=== PATIENT | female | born 1940 | race Caucasian/White ===

== ENCOUNTER 2017-07-10 09:47 | Emergency (ER) | payer MEDICARE, OTHER ==
[2016-07-01 14:07] VITALS: BMI 26.2
[~2017-07-10 09:47] MED LIST: AMOXICILLIN875 MG PO; ASPIRIN81 MG PO; BETAPACE 80 MG80 MG PO; BRILINTA90 MG PO; COZAAR50 MG PO; LOPRESSOR25 MG PO; PRAVACHOL40 MG PO
[2017-07-10 10:31] LABS: BASOPHILS 0.2 % (0-2); EOSINOPHILS 1.2 % (0-7); HEMATOCRIT 43.3 % (36.0-48.0); HEMOGLOBIN 14.6 g/dL (12-16); IMMATURE GRANULOCYTES 0.2 % (0-5); LYMPHOCYTES 17.7 % (15-50); MCH 31.2 pg (26.0-34.0); MCHC 33.7 g/dL (31.0-37.0); MCV 92.5 fL (80.0-100.0); MEAN PLATELET VOLUME 10.6 fL (7.4-10.4); MONOCYTES 6.5 % (2-11); NEUTROPHILS 74.2 % (40-80); PLATELET COUNT 218 10x3/uL (130-400); RBC 4.68 10x6/uL (4.00-5.40); RDW 12.5 % (11.5-14.5); WBC 10.6 10x3/uL (4.8-10.8)
[2017-07-10 10:49] LABS: ALBUMIN 4.1 g/dL (3.4-5.0); BILIRUBIN - TOTAL 0.82 mg/dL (0.2-1.3); CALCIUM 9.8 mg/dL (8.5-10.1); CARBON DIOXIDE 25.6 mmol/L (21.0-32.0); CREATININE - SERUM 0.8 mg/dL (0.6-1.3); POTASSIUM - SERUM 3.6 mmol/L (3.5-5.1); PROTEIN - SERUM 8.1 g/dL (6.4-8.2)
[2017-07-10 12:42] LABS: APPEARANCE CLEAR (CLEAR); BILIRUBIN NEGATIVE (NEGATIVE); COLOR YELLOW (YELLOW); EPITHELIAL CELLS 0-5 /hpf (0-5); GLUCOSE NEGATIVE (NEGATIVE); KETONE MODERATE mg/dL (NEGATIVE); NITRITE NEGATIVE (NEGATIVE); PROTEIN NEGATIVE (NEGATIVE); UROBILINOGEN NORMAL (NORMAL); WHITE CELLS - URINE >50 /hpf (0-5)
[2017-07-10 12:43] LABS: AMORPHOUS SEDIMENT <1+ /lpf (NONE SEEN); BACTERIA MODERATE /hpf (NONE SEEN); MUCUS >1+ /lpf (NONE SEEN)
[2017-07-10] MEDS ORDERED: COZAAR50 MG PO (22:38)
[2017-07-10] MEDS ORDERED: MECLIZINE HCL12.5 MG PO (22:42)
== END 2017-07-10 14:35 | disposition home or self-care (01) ==
LOC: D.ER 09:47
PROVIDERS: Family Medicine
DX: N39.0 Urinary tract infection, site not specified (principal); J01.90 Acute sinusitis, unspecified

== ENCOUNTER 2017-07-10 15:27 | Inpatient (IN) | payer MEDICARE, OTHER ==
[~2017-07-10] VITALS: Ht 157.5 cm; Wt 63.2 kg
--- NOTE | 2017-07-10 21:36 | NUR ---
SPOKE WITH LEILA IN THE ER IN REGARDS TO PT. LEILA INFORMED ME THE PT HAS NOT URINATED SINCE THIS AM AND DR. SERRANO STATED THAT DR. RIVERA NEEDED TO BE CONTACTED TO ORDER A DIET FOR THE PT. IVY NOLEN IN REGARDS TO PATIENT'S DIET, FLUIDS, AND ORDERS FOR IN AND OUT CATH IF NEEDED.
--- NOTE | 2017-07-10 21:36 | NUR ---
LEILA IN THE ER NOTIFIED ME THAT DR. RIVERA HAS ALREADY BEEN CONTACTED IN REGARDS TO THE PT'S MRI RESULTS
--- NOTE | 2017-07-10 21:40 | NUR ---
CRISTAL RESPONDED TO PAGE. CRISTAL STATED SHE IS NOT TRAIN ATTENDANT FOR DR. RIVERA. CRISTAL ALSO ORDERED IV FLUIDS FOR THE PT, STARTED THE PT ON ROCEPHIN, AND ORDERED A ARAGON IF THE PT'S BLADDER SCAN WAS > 400. WILL PAGE DR. RIVERA IN REGARDS TO THE PT'S DIET.
--- NOTE | 2017-07-10 21:45 | NUR ---
PATIENT REC'D FROM ER WITH SON AT BEDSIDE. NO VISIBLE SIGNS OF DISTRESS. PT IS A&O, HOWEVER, IS SLOW TO RESPOND WHEN ASKED QUESTIONS. BED IN LOWEST POSITION, CALL LIGHT WITHIN REACH, AND BED ALARM WITHIN REACH.
--- NOTE | 2017-07-10 22:15 | NUR ---
DR. RIVERA ORDERED A CLEAR LIQUID DIET AND STATED THAT SPEECH THERAPY WILL DO A SWALLOW TEST IN THE AM
[2017-07-10] MEDS ORDERED: COZAAR50 MG PO (22:38)
[2017-07-10] MEDS ORDERED: MECLIZINE HCL12.5 MG PO (22:42)
--- NOTE | 2017-07-10 23:29 | NUR ---
BLADDER SCAN REVEALED 735ML
[2017-07-10 23:57] VITALS: BP 155/75
[2017-07-11 01:40] VITALS: BP 155/75; Ht 157.5 cm; Wt 63.2 kg
[2017-07-11 04:00] VITALS: BP 161/82
[2017-07-11 06:37] LABS: BASOPHILS 0 % (0-2); EOSINOPHILS 0 % (0-7); HEMATOCRIT 41.8 % (36.0-48.0); HEMOGLOBIN 13.9 g/dL (12-16); IMMATURE GRANULOCYTES 0.3 % (0-5); LYMPHOCYTES 12.6 % (15-50); MCH 30.8 pg (26.0-34.0); MCHC 33.3 g/dL (31.0-37.0); MCV 92.7 fL (80.0-100.0); MONOCYTES 0.7 % (2-11); NEUTROPHILS 86.4 % (40-80); PLATELET COUNT 212 10x3/uL (130-400); RBC 4.51 10x6/uL (4.00-5.40); RDW 12.5 % (11.5-14.5); WBC 6.9 10x3/uL (4.8-10.8)
[2017-07-11 07:01] LABS: ALBUMIN 3.6 g/dL (3.4-5.0); ALKALINE PHOSPHATASE 44 U/L (46-116); ALT (SGPT) 18 U/L (10-68); CALC OSMOLALITY 275 mosm/kg (275-300); CALCIUM 9.4 mg/dL (8.5-10.1); CARBON DIOXIDE 21.9 mmol/L (21.0-32.0); CHLORIDE - SERUM 102 mmol/L (98-107); CREATININE - SERUM 0.6 mg/dL (0.6-1.3); GLUCOSE 140 mg/dL (74-106); POTASSIUM - SERUM 3.8 mmol/L (3.5-5.1); PROTEIN - SERUM 7.1 g/dL (6.4-8.2); SODIUM 136 mmol/L (136-145); UREA NITROGEN 17 mg/dL (7-18); eGFR NON AFRICAN AMERICAN > 90 mL/min (90-120)
[2017-07-11 08:15] VITALS: BP 151/83
--- NOTE | 2017-07-11 09:00 | NUR ---
ASSESSMENT PER FLOW SHEET. PT WITHOUT DISTRESS. PT COMPLAINS OF DULL HEADACHE THAT IS CONSTANT,4/10 SCALE. PT HAS SHAKING OF ARMS AND HANDS. SHE ALSO HAS BRUISE TO LEFT ELBOW WITH SMALL SCRAPE. PT STATES SHE HAD GOT DIZZY AND FELL AT HOME. BED ALARM IS ON AND FUCTIONING. FAL PREVENTION TEACHING WITH FAMILY. CALL LIGHT IN REACH.
[2017-07-11 11:57] VITALS: BP 156/80
[2017-07-11 16:51] VITALS: BP 137/78
--- NOTE | 2017-07-11 18:50 | NUR ---
REMAINS WITHOUT CHANGE FRON INITIAL ASSESSMENT. MEDS FOR PAIN ORDERED, BRINGING HEADACHE DOWN TO 2/10 SCALE PER PT. CONNT PLAN OF CARE
--- NOTE | 2017-07-11 20:52 | NUR ---
PATIENT IS AWAKE, ALERT AND ORIENTED X'S 4. PATIENT STATED SHE IS TIRED AND WANTS TO GO TO SLEEP. ASSESSED IV, GOOD BLOOD RETURN. DILUTED DECADRON IN 5ML OF SALINE FLUSH. PATIENT DENIES NEEDS. REFUSED NON-SKID SOCKS. SHE HAS HOUSE SHOES IN THE ROOM WITH TRACTION ON THE BOTTOM, SHE STATED SHE WILL WEAR THOSE WHEN SHE NEEDS TO GET UP. BED ALARM ON. SPOKE WITH PATIENT ABOUT FALL PRECAUTIONS, PATIENT STATED SHE WILL NOT GET UP WITHOUT ASSISTANCE. BED IN LOWEST POSITION, CALL LIGHT IN REACH.
[2017-07-11 21:30] VITALS: BP 135/69
[2017-07-12 00:26] VITALS: BP 129/50
--- NOTE | 2017-07-12 04:04 | NUR ---
SCDS ON BILATERAL LEGS
[2017-07-12 04:44] VITALS: BP 142/61
[2017-07-12 05:12] LABS: BASOPHILS 0 % (0-2); EOSINOPHILS 0 % (0-7); HEMATOCRIT 38.8 % (36.0-48.0); IMMATURE GRANULOCYTES 0.3 % (0-5); LYMPHOCYTES 8.6 % (15-50); MCHC 33.5 g/dL (31.0-37.0); MCV 92.6 fL (80.0-100.0); MONOCYTES 2.3 % (2-11); NEUTROPHILS 88.8 % (40-80); PLATELET COUNT 219 10x3/uL (130-400); RBC 4.19 10x6/uL (4.00-5.40); RDW 12.7 % (11.5-14.5)
--- NOTE | 2017-07-12 05:15 | NUR ---
ARAGON CARE COMPLETED USING ARAGON CARE WIPES.
[2017-07-12 05:17] LABS: WBC 15.6 10x3/uL (4.8-10.8)
[2017-07-12 05:33] LABS: ALBUMIN 3.2 g/dL (3.4-5.0); ALKALINE PHOSPHATASE 42 U/L (46-116); ALT (SGPT) 19 U/L (10-68); BILIRUBIN - TOTAL 0.34 mg/dL (0.2-1.3); CALC OSMOLALITY 276 mosm/kg (275-300); CALCIUM 9.2 mg/dL (8.5-10.1); CARBON DIOXIDE 23.6 mmol/L (21.0-32.0); CHLORIDE - SERUM 104 mmol/L (98-107); CREATININE - SERUM 0.7 mg/dL (0.6-1.3); GLUCOSE 138 mg/dL (74-106); POTASSIUM - SERUM 4.1 mmol/L (3.5-5.1); PROTEIN - SERUM 6.4 g/dL (6.4-8.2); SODIUM 137 mmol/L (136-145); UREA NITROGEN 16 mg/dL (7-18); eGFR NON AFRICAN AMERICAN 87 mL/min (90-120)
--- NOTE | 2017-07-12 07:20 | NUR ---
PT IS RECEIVED THIS AM LYING IN BED. SHE OFFERS NO COMPLAINTS. GOT PT SOME COFFEE AND FRESH WATER. SHE IS NOT HAVING ANY PAIN AT THIS TIME. GEN- AWAKE AND ALERT. LUNGS- CLEAR. HEART. RRR ABD- SOFT,NT,BS +. EXT- MINIMAL EDEMA NOTED. IV PATENT L HAND. ARAGON INTACT. SCD'S INTACT. BED IS LOW, SIDE RAILS UP X 2 AND CALL LIGHT IN REACH.
[2017-07-12 08:06] VITALS: BP 148/64
--- NOTE | 2017-07-12 09:51 | NUR ---
GAVE PT HER 0900 MEDS. HER SON IS AT BEDSIDE. HE ASKED THAT DR RIVERA CALL HIS DAD. HE HAD A STROKE AND JUST GOT OUT OF THE HOSPITAL A COUPLE OF WEEKS AGO AND HE HAS SOME QUESTIONS REGARDING HIS . I PUT A NOT ON THE FRONT OF HER CHART. SHE ASKED WHAT THE SCD'S WERE FOR. EXPLAINED REASON FOR THESE. NO OTHER NEEDS AT THIS TIME.
--- NOTE | 2017-07-12 10:45 | NUR ---
PT IS UP WALKING IN HALLWAY WITH PHYSICAL THERAPY. TOLERATING WELL.
--- NOTE | 2017-07-12 11:07 | NUR ---
PT IS BACK TO BED. SHE OFFERS NO PROBLEMS. HER SON IS AT BEDSIDE.
[2017-07-12 12:27] VITALS: BP 140/70
--- NOTE | 2017-07-12 14:30 | NUR ---
PT IS DOING WELL. SHE OFFERS NO COMPLAINTS. SON AT BEDSIDE. THEY ARE WATCHING TV.
[2017-07-12 15:53] VITALS: BP 132/53
--- NOTE | 2017-07-12 16:30 | NUR ---
PT IS RESTING IN BED. SHE OFFERS NO COMPLAINTS. HER SON IS AT BEDSIDE.
--- NOTE | 2017-07-12 17:26 | NUR ---
PT IS RESTING. SON AT BEDSIDE. SHE OFFERS NO COMPLAINTS. BED IS LOW, SIDE RAILS UP X 2 AND CALL LIGHT IN REACH.
[2017-07-12 20:00] VITALS: BP 130/64
--- NOTE | 2017-07-12 21:25 | NUR ---
REC'D LYING IN BED. ALERT AND ORIENTED X4. DENIED PAIN AT THIS TIME. DENIED NEEDS AT THIS TIME. NO DISTRESS NOTED. INSTRUCTED TO CALL IF NEEDED ANYTHING, VERBALIZED UNDERSTANDING. WILL ADMIN PM MEDS PRESCRIBED. BED LOW, LOCKED, CALL LIGHT IN REACH. WILL CONT TO MONITOR.
[2017-07-13] VITALS: BP 135/64
--- NOTE | 2017-07-13 00:59 | NUR ---
PT RESTING WITH EYES CLOSED AT THIS TIME. NO DISTRESS NOTED. EQUAL RISE AND FALL OF CHEST. CALL LIHGT IN REACH.
[2017-07-13 04:00] VITALS: BP 121/65
--- NOTE | 2017-07-13 07:10 | NUR ---
REPORT RECEIVED, ASSUMED CARE OF PT. RESTING, EYES SHUT, EASILY AROUSED, NO NEEDS VOICED AT THIS TIME. L HAND IV INFUSING FLUIDS ORDERED. ARAGON CATHETER IN PLACE, SECURED TO LEG WITH STAT LOCK. BED IN LOWEST POSITION, SIDE RAILS UP X 2, CALL LIGHT WITHIN REACH.
[2017-07-13 08:16] VITALS: BP 158/62
--- NOTE | 2017-07-13 09:54 | NUR ---
Patient Name: SOTO AVILA Admission Status: ER Accout number: [id number] Admission Date: 07-10-2017 : 1940 Admission Diagnosis:MALIGNANT NEOPLASM OF BRAIN, UNSPECIFIED Attending: DAPHNE AVENDAÑO Current LOS: 3 Anticipated DC Date: 07-17-2017 Planned Disposition: Home Primary Insurance: MEDICARE A & B Discharge Planning Comments: CM MET WITH PATIENT REGARDING D/C NEEDS AND PLANS. PATIENT STATED SHE LIVES WITH HER SPOUSE AND THERE HOME HAS 5 STEPS W/RAILS TO ENTER HOME AND NO STAIRS INSIDE. PATIENT STATED SHE IS INDEPENDENT WITH HER CARE AND HAS A WALKER, AND SHOWER BENCH AT HOME. PATIENTS PCP IS DR. LOZANO AND PHARMACY IS [facility]. PATIENT DOES NOT WANT HOME HEALTH AT THIS TIME. CM WILL CONTINUE TO FOLLOW PATIENT WITH D/C NEEDS AND PLANS. PCP DR. [facility]- [phone] SOPHIA (SON) [phone] Rough And Trueing Machine Operator: Carol Griffith Is the patient Alert and Oriented? Yes 0 * How many steps to enter\exit or inside your home? 5 W/RAILS 0 * PCP DR. LOZANO 0 * Pharmacy [facility] 0 * Preadmission Environment Home with Family 0 * ADLs Independent 0 * Equipment Shower Chair Walker 0 * List name and contact numbers for known caregivers / representatives who currently or will assist patient after discharge: SOPHIA (SON) [phone] 0 * Community resources currently utilized None 0 * Additional services required to return to the preadmission environment? Yes 0 * Can the patient safely return to the preadmission environment? Yes 0 * Has this patient been hospitalized within the prior 30 days at any hospital? No 0 Grand Total: 0
[2017-07-13 12:33] VITALS: BP 157/82
[2017-07-13 13:31] LABS: BASOPHILS 0 % (0-2); EOSINOPHILS 0 % (0-7); HEMATOCRIT 39.6 % (36.0-48.0); HEMOGLOBIN 13.3 g/dL (12-16); IMMATURE GRANULOCYTES 0.5 % (0-5); LYMPHOCYTES 7.2 % (15-50); MCH 31.1 pg (26.0-34.0); MCHC 33.6 g/dL (31.0-37.0); MCV 92.5 fL (80.0-100.0); MEAN PLATELET VOLUME 10.8 fL (7.4-10.4); MONOCYTES 8.5 % (2-11); NEUTROPHILS 83.8 % (40-80); PLATELET COUNT 230 10x3/uL (130-400); RBC 4.28 10x6/uL (4.00-5.40); RDW 12.8 % (11.5-14.5); WBC 15.1 10x3/uL (4.8-10.8)
[2017-07-13 14:00] LABS: ALBUMIN 3.1 g/dL (3.4-5.0); ANION GAP 14.6 mmol/L (8-16); BILIRUBIN - TOTAL 0.36 mg/dL (0.2-1.3); CALCIUM 9.1 mg/dL (8.5-10.1); CREATININE - SERUM 0.8 mg/dL (0.6-1.3); POTASSIUM - SERUM 3.6 mmol/L (3.5-5.1); PROTEIN - SERUM 6.4 g/dL (6.4-8.2)
[2017-07-13 15:35] VITALS: BP 145/70
--- NOTE | 2017-07-13 16:20 | NUR ---
ARAGON CATHETER D/C'D ORDERED.
[2017-07-13] MEDS ORDERED: FLORAJEN3 CAPS460 MG PO (17:10)
[2017-07-13] MEDS ORDERED: OMNICEF300 MG PO (17:11)
[2017-07-13] MEDS ORDERED: DECADRON4 MG PO (17:15)
--- NOTE | 2017-07-13 18:11 | NUR ---
OT NOTE: PT COMPLETED BED MOB WITH SPV. PT COMPLETED DYNAMIC SITTING BALANCE WITH SPV. PT COMPLETED BUE EXS FOR INCREASED STRENGTH. THANK YOU, YAZMIN ALEXANDER/Alo
--- NOTE | 2017-07-13 19:48 | NUR ---
ALERT AND ORIENTED. PLEASANT AND TALKATIVE. DISCHARGED FROM ROOM 2231 TO HOME. TAKEN OUT IN W/C BY STAFF WITH FAMILY AT SIDE TO PERSONAL VECHICLE. ALL BELONGING SENT WITH PT..
== END 2017-07-13 19:35 | disposition home or self-care (01) | DRG 54 ==
LOC: D.ER 15:27 → D.MS 18:07
PROVIDERS: ADMIT Family Medicine
DX: C71.9 Malignant neoplasm of brain, unspecified (principal); G93.6 Cerebral edema; N39.0 Urinary tract infection, site not specified; I25.10 Atherosclerotic heart disease of native coronary artery without angina pectoris; E78.5 Hyperlipidemia, unspecified; R55 Syncope and collapse

== ENCOUNTER 2017-07-18 05:19 | Inpatient (IN) | payer MEDICARE, OTHER ==
[2017-07-17 14:16] LABS: BASOPHILS 0 % (0-2); EOSINOPHILS 0.2 % (0-7); HEMATOCRIT 42.5 % (36.0-48.0); HEMOGLOBIN 14.5 g/dL (12-16); IMMATURE GRANULOCYTES 0.8 % (0-5); LYMPHOCYTES 10.9 % (15-50); MCH 31.1 pg (26.0-34.0); MCHC 34.1 g/dL (31.0-37.0); MCV 91.2 fL (80.0-100.0); MEAN PLATELET VOLUME 10.7 fL (7.4-10.4); MONOCYTES 4.7 % (2-11); NEUTROPHILS 83.4 % (40-80); PLATELET COUNT 237 10x3/uL (130-400); RBC 4.66 10x6/uL (4.00-5.40); RDW 12.8 % (11.5-14.5); WBC 11.2 10x3/uL (4.8-10.8)
[2017-07-17 14:22] LABS: APTT 21.8 SECONDS (22.8-39.4); INR 0.94 (0.85-1.17); PROTIME 12.4 SECONDS (11.6-15.0)
[2017-07-17 14:30] LABS: CALC OSMOLALITY 280 mosm/kg (275-300); CALCIUM 8.7 mg/dL (8.5-10.1); CARBON DIOXIDE 24.1 mmol/L (21.0-32.0); CHLORIDE - SERUM 103 mmol/L (98-107); CREATININE - SERUM 0.6 mg/dL (0.6-1.3); GLUCOSE 131 mg/dL (74-106); POTASSIUM - SERUM 4.2 mmol/L (3.5-5.1); SODIUM 138 mmol/L (136-145); UREA NITROGEN 22 mg/dL (7-18); eGFR NON AFRICAN AMERICAN > 90 mL/min (90-120)
[2017-07-18] VITALS (15 sets, daily range): BP systolic 113–163; BP diastolic 60–92; Ht 157.5 cm; Wt 65.5 kg
[~2017-07-18] VITALS: Ht 157.5 cm; Wt 65.5 kg
[~2017-07-18 05:19] MED LIST changes: +DECADRON4 MG PO; +FLORAJEN3 CAPS460 MG PO; +MECLIZINE HCL12.5 MG PO; +OMNICEF300 MG PO
--- NOTE | 2017-07-18 10:54 | NUR ---
1055: RIGHT KNEE SORE UNCHANGED.
--- NOTE | 2017-07-18 11:54 | NUR ---
CONSULTED DR VIVAR REGARDING ELEVATED BP. GIVEN VERBAL ORDERS TO GIVE HYDRALAZINE 10MG IV X1 IN PACU WITH SBP GREATER THAN 140.
--- NOTE | 2017-07-18 12:20 | NUR ---
REC'D VIA BED FROM RECOVERY, AWAKE AND ORIENTED, HEAD WITH STOCKINET DRESSING IN PLACE, DRESSING CDI, O2 VIA NC, SAT 98%, RIGHT IJDL SL, RIGHT RADIAL DOROTHY IN PLACE, ZEROED STABLE, ARAGON TO GRAVITY WITH CLEAR YELLOW DRAINAGE TO BAG, ASSESSMENT COMPLETE PER FLOWSHEET, ACCLAMATED TO ROOM AND CALL LIGHT, SON CALLED TO BEDSIDE, STATUS UPDATED, VOICES NO NEEDS AT THIS TIME
--- NOTE | 2017-07-18 13:45 | NUR ---
C/O PAIN IN HEAD, NORCO 5325 [address] PER MAR FLOWSHEET
--- NOTE | 2017-07-18 15:00 | NUR ---
RESTING WITH NO SIGN OF DISTRESS VSS, DENIES PAIN, CALL LIGHT IN REACH, REPOSITIONED UP AND TO BACK WITH HEELS FLOATED, NO OTHER NEEDS AT THIS TIME
--- NOTE | 2017-07-18 16:45 | NUR ---
CL LIQUID DINNER TRAY TO BEDSIDE, ASSIST WITH SET UP, INDEPENDENT WITH EATING
--- NOTE | 2017-07-18 19:08 | NUR ---
PC FROM DR RIVERA, STATUS UPDATED, NO NEW ORDERS AT THIS TIME
--- NOTE | 2017-07-18 19:30 | NUR ---
REPORT RECIEVED. SHIFT ASSESSMENT COMPLETE, PT IS ALERT AND ORIENTED, ON 2L NC, DRSG TO HEAD INCISION IS CDI, S1S2, CM-NSR, PATENT RIGHT IJ....SEE IV FLOW SHEET...ALL PPP, VSS, CALL LIGHT IN REACH
--- NOTE | 2017-07-18 20:30 | NUR ---
PT C/O OF HEADACHE, ORDERED PAIN MED GIVEN
--- NOTE | 2017-07-18 21:27 | NUR ---
PT RESTING COMFORTABLY AT THIS TIME, WILL CON'T TO MONITOR
--- NOTE | 2017-07-18 23:08 | NUR ---
PT PAIN IMPROVED AT THIS TIME, NO OTHER NEEDS NOTED, WILL CON'T TO MONITOR
[2017-07-19] VITALS (12 sets, daily range): BP systolic 94–181; BP diastolic 62–100
--- NOTE | 2017-07-19 01:30 | NUR ---
PT C/O OF HEADACHE, ORDERED PAIN MED GIVEN
--- NOTE | 2017-07-19 03:00 | NUR ---
PT RESTING AT THIS TIME, WILL CON'T TO MONITOR
--- NOTE | 2017-07-19 04:58 | NUR ---
PT AWAKE AT THIS TIME, DENIES ANY WANTS OR NEEDS, WILL CON'T TO MONITOR
--- NOTE | 2017-07-19 11:00 | NUR ---
BATH AND LINEN CHANGE COMPLETED, DOROTHY DC'D RIGHT IJTL, SL, DRESSING CHANGE TO LEFT OCCIPTAL LOBE, CLEANED WITH WOUND CLEANSER, BORDERED GAUZE DRESSING APPLIED, ASSESSMENT COMPLETE PER FLOWSHEET, VSS, DENIES PAIN, CALLLIGHT IN REACH, VOICES NO NEEDS AT THIS TIME
--- NOTE | 2017-07-19 11:28 | NUR ---
* Is the patient Alert and Oriented? Yes 0 * How many steps to enter\exit or inside your home? 3-4 0 * PCP Dr. Osorio 0 * Pharmacy [place] 0 * Preadmission Environment Home with Family 0 * ADLs Independent 0 * Equipment Rolling Walker Shower Chair 0 * List name and contact numbers for known caregivers / representatives who currently or will assist patient after discharge: Diallo Toussaint [phone] 0 * Additional services required to return to the preadmission environment? No 0 * Can the patient safely return to the preadmission environment? Yes 0 * Has this patient been hospitalized within the prior 30 days at any hospital? Yes Patient Name: SOTO TOUSSAINT Admission Status: Elective Accout number: [id number] Admission Date: 07-18-2017 : 1940 Admission Diagnosis: Attending: VANDA RIVERA Current LOS: 1 Anticipated DC Date: 07-23-2017 Planned Disposition: Home Primary Insurance: MEDICARE A & B Discharge Planning Comments: CM met with patient & son, Coy, to assess dc plans/needs. Patient reports she lives at home with her , Hans, and her adult daughter. Coy states he lives next door. Patient reports she is independent with all ADL's. She has a walker and shower bench at home. At dc, she plans to return home with her family. She is agreeable to home health if necessary. CM will follow & assist as needed. Bias Cutter: Linnea Barrett
--- NOTE | 2017-07-19 12:00 | NUR ---
SON SOPHIA AT BEDSIDE, STATUS UPDATED VOICES NO NEEDS AT THIS TIME
--- NOTE | 2017-07-19 12:27 | OP ---
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 PROCEDURE: Suboccipital craniectomy for resection of cerebellopontine angle tumor on left, microscopic illumination and CUSA aspirator. DESCRIPTION AND TECHNIQUE: After induction of general endotracheal anesthesia, the patient was placed in Gage head pin and was rolled prone on chest and hip rolls. The occipital and suboccipital scalp were prepped and draped in usual sterile fashion. A longitudinal scalp incision was carried out just above the nuchal line just above the asterion. Dorys clips applied for hemostasis. The asterion was identified after subperiosteal dissection with Bovie cautery. Next, several marquez holes were created with the asterion in the upper lateral corner. Bone was removed with match head and Midas Connor drill until the transverse sinus and sigmoid sinus were identified. The mastoid air cells were entered. These were waxed with copious amounts of bone wax. The dura was opened in a cruciate manner with bipolar cautery and #11 blade. The cerebellum was gently retracted inferiorly. There was an obvious tumor attached to the dura, it was attached to the transverse sinus and sigmoid sinuses. 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 The perimeter was cauterized with bipolar cautery and dissected free under microscopic illumination with microdissectors from the transverse sinus, sigmoid sinus, and dura as well as the cerebellum. Following this, there appeared to be a gross total resection of the tumor. Meticulous hemostasis was maintained throughout the wound. The wound was irrigated with copious amounts of lukewarm saline irrigant solution. Surgicel was placed in the bed of the wound. The dura was reapproximated with interrupted 4-0 Nurolon suture. The dura was repaired with Duragen patch. Titanium mesh was used to reconstitute the cranial defect as well as methyl methacrylate bone cement. The galea was reapproximated with interrupted 2-0 Vicryl suture. The subdermal layer was closed with 3-0 Vicryl suture. The skin was closed with becka. A sterile dressing was applied to the wound. The patient was awakened in good condition and taken to recovery. All counts were reported as correct. Estimated blood loss was minimal. TRANSINT:[id number] Voice Confirmation ID: [id number] DOCUMENT ID: [id number] VANDA RIVERA MD at 1227 CC: [id number] DICTATION DATE: 07/18/17 1112 MEDICAL MANAGER: 07/18/17 1207 ADM IN [id number] [place] [address]
--- NOTE | 2017-07-19 13:00 | NUR ---
REPORT CALLED TO KATE SHANNON ON MED SURG...
--- NOTE | 2017-07-19 13:57 | NUR ---
PT RECIEVED PER WC FROM ICU. ASSISTED TO BED. ARAGON PATENT DRAINING YELLOW URINE. RIGHT IJ NOTED-DRESSING CHANGED PER PROTOCOL. BED ALARM ON AND FALL PRECAUTIONS IN PLACE. CALL LIGHT IN REACH
--- NOTE | 2017-07-19 15:14 | NUR ---
Rehab Prescreening Consult recieved and the chart has been reviewed. She is an excellent rehab candidate. She is POD#1 Crainiotomy. She has a pending PT/OT eval that was ordered today. Rehab will follow her progress with therapy and plan for admission when she is medically stable and can participate in the 3 hrs of therapy daily 5 days a week. Tessa Madsen RN Clinical Liaison, Rehab
--- NOTE | 2017-07-19 19:40 | NUR ---
RECIEVED SHIFT REPORT. PT IS LYING IN BED. ALERT AND ORIENTED AND ABLE TO VERBALIZE NEEDS. IV IS PATENT AND SALINE LOC. ARAGON IS DRAINING URINE BY GRAVITY. PT IS ABLE TO ASSIST IN TURNING SELF IN BED FOR COMFORT AND SKIN CARE. PT STATES PAIN IS 4/10. NO NEEDS ARE VERBALIZED AT THIS TIME. WILL CONTINUE TO MONITOR. SIDE RAILS ARE UP X 2. BED IS IN LOWEST POSITION. BED ALARM IS ON FOR SAFETY. CALL LIGHT IS WITHIN REACH.
--- NOTE | 2017-07-19 20:51 | NUR ---
SHIFT ASSESSMENT COMPLETED. NIGHT MEDS GIVEN WITH NO PROBLEMS. PT C/O PAIN 12/19. ADMINISTERED PRESCRIBED PRN NORCO PER ORDER. DENIES FURTHER NEEDS. WILL MONITOR. SIDE RAILS X 2. BED LOW. BED ALARM ON. CALL LIGHT IN REACH.
[2017-07-20] VITALS: BP 139/71
[2017-07-20 04:00] VITALS: BP 195/90
--- NOTE | 2017-07-20 08:00 | NUR ---
ASSESSMENT COMPLETE. R BRENDA PATENT. ARAGON PATENT DRAINING YELLOW URINE. BED ALARM IN USE. DRESSING TO L HEAD C/D/I. DENIES ANY NEEDS AT THIS TIME.
[2017-07-20 09:03] VITALS: BP 175/85
--- NOTE | 2017-07-20 11:30 | NUR ---
COMPLAINING OF INDIGESTION. MYLANTA GIVEN. SITTING UP IN CHAIR. SON AT BEDSIDE.
[2017-07-20 12:32] VITALS: BP 146/80
--- NOTE | 2017-07-20 15:00 | NUR ---
NO CHANGES NOTED AT PRESENT.
--- NOTE | 2017-07-20 15:44 | NUR ---
REHAB PRESCREENING Rehab referral received and chart reviewed. Both ST and OT have signed off on patient. PT is recommending home with discharge. Without the requirement of 2 disciplines, this patient does not meet admission criteria for [facility]. Thank you for this referral! Larisa Olson, [facility] [place] Technician
[2017-07-20 16:48] VITALS: BP 154/86
--- NOTE | 2017-07-20 18:05 | NUR ---
SITTING UP IN CHAIR. DENIES ANY NEEDS AT PRESENT.
[2017-07-20 20:00] VITALS: BP 94/61
--- NOTE | 2017-07-20 20:27 | NUR ---
OT NOTE: PT COMPLETED DYNAMIC STANDING WITH CGA. PT COMPLETED DYNAMIC SITTING BALANCE WITH SPV. PT BUE FM SKILLS FOR INCREASED I WITH ADLS. THANK YOU, YAZMIN ALEXANDER/Alo
--- NOTE | 2017-07-20 23:00 | NUR ---
REMOVED REMOVED RIGHT IJ CVL CATHETER INTACT WHILE PT SAT IN CHAIR. APPLIED DRESSED WITH 2X2 GAUZE AND COVERED WITH TEGADERM. PT TOLERATED WELL. NO OTHER NEEDS. WILL CONTINUE TO MONITOR.
--- NOTE | 2017-07-20 23:37 | NUR ---
PT FOUND SITTING IN FLOOR BESIDE SINK. STATED SHE FELT WEAK WHILE BRUSHING HER TEETH AND EASED HERSELF DOWN TO THE FLOOR HOLDING ONTO THE COUNTER AND WALL. PT STATES NO PAIN OR INJURIES. PT STATES "I DID NOT FALL." VITAL SIGNS STABE. NEURO CHECKS WNL. HELPED PT UP AND INTO BED. INSTRUCTED PT TO CALL FOR ASSISTANCE BEFORE GETTING UP. TURNED BED ALARM ON.
[2017-07-21 00:43] VITALS: BP 133/66
[2017-07-21 04:00] VITALS: BP 125/74
--- NOTE | 2017-07-21 07:30 | NUR ---
AWAKE AND ALERT. ORIENTED X3. NO C/O AT THIS TIME. LUNGS ARE CLEAR BILATERALLY, NO COUGH NOTED. SKIN IS INTACT WITHOUT REDNESS EXCEPT INCISION TO LEFT SIDE BACK OF HEAD WHICH IS CLEAN AND DRY WITH CLIPS INTACT. ARAGON D/C THIS AM WITH TIP INTACT WITHOUT DIFFICULTY. WILL MONITOR.
[2017-07-21 09:30] VITALS: BP 156/72
[2017-07-21 14:13] VITALS: BP 133/62; BP 138/76
--- NOTE | 2017-07-21 14:59 | NUR ---
PATIENT DISCHARGING HOME TODAY, PATIENT'S SON WILL DRIVE HER HOME. PATIENT AND DR RIVERA DO NOT WANT HOME HEALTH. PATIENT DENIES ANY OTHER NEEDS FOR DISCHARGE. CM WILL CONTINUE TO FOLLOW AND ASSIST IF NEEDED FOR ANY OTHER DISCHARGE PLANNING NEEDS
[2017-07-21] MEDS ORDERED: HYDROCODONE-APA1 TAB PO (15:03)
[2017-07-21] MEDS ORDERED: DECADRON4 MG PO (15:03)
--- NOTE | 2017-07-21 15:30 | NUR ---
DISCHARGED TO HOME AMBULATORY WITH FAMILY. UP TO BR WITH ONE PERSON ASSIST. VOIDED CLEAR YELLOW URINE WITHOUT DIFFICULTY. DISCHARGE INSTRUCTIONS GIVEN BOTH VERBALLY AND WRITTEN. ALL QUESTIONS ANSWERED. PATIENT AND FAMILY VERBALIZED UNDERSTANDING OF SAME. NEEDED PRESCRIPTIONS GIVEN TO PATIENT. ALL BELONGINGS LEFT WITH PATIENT.
== END 2017-07-21 15:40 | disposition home or self-care (01) | DRG 25 ==
LOC: D.ICU 05:19 → D.SDCHOLD 05:19 → D.MS 05:19 → D.SDCHOLD 07:30 → D.ICU 10:56 → D.MS 07-19 13:47
PROVIDERS: Anesthesiology; ADMIT Neurological Surgery
PROC: 00BC0ZZ Excision of Cerebellum, Open Approach (ICD-10-PCS; principal; 2017-07-18 07:30)
DX: D49.6 Neoplasm of unspecified behavior of brain (principal); G93.6 Cerebral edema; I10 Essential (primary) hypertension; I25.10 Atherosclerotic heart disease of native coronary artery without angina pectoris; I48.0 Paroxysmal atrial fibrillation; E11.9 Type 2 diabetes mellitus without complications; E78.5 Hyperlipidemia, unspecified; R42 Dizziness and giddiness

== ENCOUNTER → 2017-08-18 07:28 | Outpatient (CLI) | payer MEDICARE, OTHER ==
[2017-07-18 16:15] VITALS: BMI 26.0
[~2017-08-18 07:28] MED LIST changes: +ATROVENT 0.02%2.5 ML UPD; +ELIQUIS5 MG PO; +FUROSEMIDE20 MG PO; +HYDROCODONE-APA1 TAB PO; +MUCINEX DM ER1 EAC1 PO; +PROTONIX40 MG PO; +TESSALON PERLE100 MG PO; +XOPENEX 0.0.63 MG/3 UPD
== END | disposition home or self-care (01) ==
LOC: D.MRI 07:28
DX: D49.6 Neoplasm of unspecified behavior of brain (principal)

== ENCOUNTER 2017-09-12 13:55 | Inpatient (IN) | payer MEDICARE, OTHER ==
[~2017-09-12] VITALS: Ht 157.5 cm; Wt 569.0 kg
--- NOTE | ~2017-09-12 | DS ---
PATIENT:SOTO AVILA :44 MEDICAL RECORD: [id number] DISCHARGE SUMMARY ADMISSION DATE: 09/12/17 DISCHARGE DATE: 09/20/17 ADMISSION DIAGNOSIS: Left cerebellar tumor. DISCHARGE DIAGNOSES: Left cerebellar tumor status post suboccipital craniectomy for tumor resection. 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 She tolerated the procedure well, was observed in ICU overnight and then was discharged home on postoperative day 2. Her diet on discharge was a soft diet. DISCHARGE MEDICATIONS: Same as admission medications with addition of Decadron 2 mg p.o. b.i.d. and Marlton 10, 1-2 every 3 hours p.r.n. for pain. TRANSINT:[id number] Voice Confirmation ID: [id number] DOCUMENT ID: [id number] VANDA RIVERA MD at 1543 CC: [id number] DICTATION DATE: 10/18/17 1143 ORCHID SUPERINTENDENT: 10/18/17 2339 DIS IN 09/20/17 [id number] [place] [address]
[~2017-09-12 13:55] MED LIST changes: -ATROVENT 0.02%2.5 ML UPD; -ELIQUIS5 MG PO; -FUROSEMIDE20 MG PO; -MUCINEX DM ER1 EAC1 PO; -PROTONIX40 MG PO; -TESSALON PERLE100 MG PO; -XOPENEX 0.0.63 MG/3 UPD
[2017-09-12 15:22] LABS: HEMATOCRIT 41.9 % (36.0-48.0); HEMOGLOBIN 14.6 g/dL (12-16); MCH 32.6 pg (26.0-34.0); MCHC 34.8 g/dL (31.0-37.0); MCV 93.5 fL (80.0-100.0); PLATELET COUNT 138 10x3/uL (130-400); RBC 4.48 10x6/uL (4.00-5.40); RDW 15.9 % (11.5-14.5); WBC 23.9 10x3/uL (4.8-10.8)
[2017-09-12 15:32] LABS: ALBUMIN 3.1 g/dL (3.4-5.0); ANION GAP 20.1 mmol/L (8-16); BILIRUBIN - TOTAL 1.5 mg/dL (0.2-1.3); CALCIUM 8.7 mg/dL (8.5-10.1); CARBON DIOXIDE 21.3 mmol/L (21.0-32.0); POTASSIUM - SERUM 4.4 mmol/L (3.5-5.1); PROTEIN - SERUM 6.6 g/dL (6.4-8.2)
[2017-09-12 15:54] LABS: ANISOCYTOSIS OCC; LYMPHOCYTES 26 % (15-50); MONOCYTES 2 % (2-11); NEUTROPHILS 56 % (40-80); PLATELET ESTIMATE NORMAL
[2017-09-12 16:41] LABS: CREATINE KINASE 61 UL (21-215); PRO BNP 1200 pg/mL (0-125)
[2017-09-13 03:35] VITALS: BP 132/79; BMI 24.9
[2017-09-13 04:00] VITALS: BP 129/81
[2017-09-13 07:52] VITALS: BP 106/58
[2017-09-13] MEDS ORDERED: FUROSEMIDE20 MG PO (10:21)
[2017-09-13 11:33] VITALS: BP 99/64
[2017-09-13 12:31] VITALS: BMI 24.8
[2017-09-13 13:49] LABS: APPEARANCE CLEAR (CLEAR); BILIRUBIN NEGATIVE (NEGATIVE); COLOR YELLOW (YELLOW); GLUCOSE NEGATIVE (NEGATIVE); KETONE NEGATIVE (NEGATIVE); NITRITE POSITIVE (NEGATIVE); PROTEIN NEGATIVE (NEGATIVE); UROBILINOGEN NORMAL (NORMAL)
[2017-09-13 13:51] LABS: BACTERIA MODERATE /hpf (NONE SEEN); EPITHELIAL CELLS OCC /hpf (0-5); RED CELLS - URINE RARE /hpf (0-5); WHITE CELLS - URINE 0-5 /hpf (0-5)
[2017-09-13 14:23] LABS: HEMATOCRIT 37.2 % (36.0-48.0); HEMOGLOBIN 13.3 g/dL (12-16); MCH 31.9 pg (26.0-34.0); MCHC 35.8 g/dL (31.0-37.0); MCV 89.2 fL (80.0-100.0); MEAN PLATELET VOLUME 10.6 fL (7.4-10.4); PLATELET COUNT 110 10x3/uL (130-400); RBC 4.17 10x6/uL (4.00-5.40); RDW 15.7 % (11.5-14.5)
[2017-09-13 14:46] LABS: ALBUMIN 2.5 g/dL (3.4-5.0); ANION GAP 13.9 mmol/L (8-16); BILIRUBIN - TOTAL 1.1 mg/dL (0.2-1.3); CALCIUM 8.7 mg/dL (8.5-10.1); CARBON DIOXIDE 24.4 mmol/L (21.0-32.0); CREATININE - SERUM 0.8 mg/dL (0.6-1.3); PROTEIN - SERUM 5.5 g/dL (6.4-8.2)
[2017-09-13 14:47] LABS: POTASSIUM - SERUM 3.3 mmol/L (3.5-5.1)
[2017-09-13 15:11] LABS: EOSINOPHILS 3 % (0-7); LYMPHOCYTES 26 % (15-50); MONOCYTES 2 % (2-11); NEUTROPHILS 69 % (40-80); PLATELET ESTIMATE NORMAL
[2017-09-13 15:36] VITALS: BP 95/58
[2017-09-13 17:43] VITALS: Ht 157.5 cm; Wt 569.0 kg
[2017-09-13 19:00] VITALS: BP 107/58
[2017-09-14 04:00] VITALS: BP 115/69
[2017-09-14 05:53] LABS: BASOPHILS 0.2 % (0-2); EOSINOPHILS 0.2 % (0-7); HEMATOCRIT 38.1 % (36.0-48.0); HEMOGLOBIN 13.4 g/dL (12-16); IMMATURE GRANULOCYTES 3.5 % (0-5); LYMPHOCYTES 22.5 % (15-50); MCH 31.5 pg (26.0-34.0); MCHC 35.2 g/dL (31.0-37.0); MCV 89.6 fL (80.0-100.0); MEAN PLATELET VOLUME 10.9 fL (7.4-10.4); NEUTROPHILS 67.6 % (40-80); PLATELET COUNT 110 10x3/uL (130-400); RBC 4.25 10x6/uL (4.00-5.40); RDW 15.6 % (11.5-14.5); WBC 12.5 10x3/uL (4.8-10.8)
[2017-09-14 06:12] LABS: CALCIUM 8.6 mg/dL (8.5-10.1); CARBON DIOXIDE 26.3 mmol/L (21.0-32.0); CHLORIDE - SERUM 101 mmol/L (98-107); PHOSPHOROUS 2.8 mg/dL (2.5-4.9); SODIUM 138 mmol/L (136-145); UREA NITROGEN 24 mg/dL (7-18)
[2017-09-14 06:29] LABS: CALC OSMOLALITY 278 mosm/kg (275-300); CREATININE - SERUM 0.5 mg/dL (0.6-1.3); GLUCOSE 85 mg/dL (74-106); MAGNESIUM - SERUM 1.9 mg/dL (1.8-2.4); POTASSIUM - SERUM 2.9 mmol/L (3.5-5.1); eGFR NON AFRICAN AMERICAN > 90 mL/min (90-120)
[2017-09-14 07:57] VITALS: BP 136/72
[2017-09-14 11:18] VITALS: BP 130/77
[2017-09-14 15:38] VITALS: BP 99/71
[2017-09-14 21:43] VITALS: BP 103/73
[2017-09-15 06:45] VITALS: BP 148/79
[2017-09-15 07:22] LABS: FOLATE (FOLIC ACID) - SERUM 9.2 ng/mL (>3.0)
[2017-09-15 07:58] LABS: BASOPHILS 0.1 % (0-2); EOSINOPHILS 0.2 % (0-7); HEMATOCRIT 39.4 % (36.0-48.0); HEMOGLOBIN 13.7 g/dL (12-16); IMMATURE GRANULOCYTES 1.9 % (0-5); LYMPHOCYTES 18.6 % (15-50); MCH 31.7 pg (26.0-34.0); MCHC 34.8 g/dL (31.0-37.0); MCV 91.2 fL (80.0-100.0); MEAN PLATELET VOLUME 10.9 fL (7.4-10.4); MONOCYTES 5.2 % (2-11); PLATELET COUNT 104 10x3/uL (130-400); RBC 4.32 10x6/uL (4.00-5.40); RDW 15.8 % (11.5-14.5)
[2017-09-15 08:10] LABS: ALBUMIN 2.8 g/dL (3.4-5.0); ALKALINE PHOSPHATASE 86 U/L (46-116); ALT (SGPT) 47 U/L (10-68); CALCIUM 9.1 mg/dL (8.5-10.1); CARBON DIOXIDE 26.4 mmol/L (21.0-32.0); CHLORIDE - SERUM 102 mmol/L (98-107); CREATININE - SERUM 0.6 mg/dL (0.6-1.3); GLUCOSE 99 mg/dL (74-106); PROTEIN - SERUM 6.1 g/dL (6.4-8.2); SODIUM 138 mmol/L (136-145); eGFR NON AFRICAN AMERICAN > 90 mL/min (90-120)
[2017-09-15 08:15] LABS: CALC OSMOLALITY 282 mosm/kg (275-300); POTASSIUM - SERUM 3.7 mmol/L (3.5-5.1); UREA NITROGEN 33 mg/dL (7-18)
[2017-09-15 08:35] VITALS: BP 120/88
[2017-09-15 11:40] VITALS: BP 126/73
[2017-09-15 15:34] VITALS: BP 132/70
[2017-09-15 23:00] VITALS: BP 104/81
[2017-09-16 06:23] VITALS: BP 118/79
[2017-09-16 06:29] LABS: BASOPHILS 0.1 % (0-2); EOSINOPHILS 0.7 % (0-7); HEMATOCRIT 35.7 % (36.0-48.0); HEMOGLOBIN 12.4 g/dL (12-16); IMMATURE GRANULOCYTES 2.3 % (0-5); LYMPHOCYTES 21.1 % (15-50); MCH 31.2 pg (26.0-34.0); MCHC 34.7 g/dL (31.0-37.0); MCV 89.9 fL (80.0-100.0); MEAN PLATELET VOLUME 10.9 fL (7.4-10.4); MONOCYTES 5.9 % (2-11); NEUTROPHILS 69.9 % (40-80); PLATELET COUNT 99 10x3/uL (130-400); RBC 3.97 10x6/uL (4.00-5.40); RDW 15.9 % (11.5-14.5); WBC 8.3 10x3/uL (4.8-10.8)
[2017-09-16 06:39] LABS: CALC OSMOLALITY 283 mosm/kg (275-300); CALCIUM 8.6 mg/dL (8.5-10.1); CARBON DIOXIDE 25.7 mmol/L (21.0-32.0); CHLORIDE - SERUM 101 mmol/L (98-107); CREATININE - SERUM 0.6 mg/dL (0.6-1.3); GLUCOSE 95 mg/dL (74-106); SODIUM 138 mmol/L (136-145); UREA NITROGEN 35 mg/dL (7-18); eGFR NON AFRICAN AMERICAN > 90 mL/min (90-120)
[2017-09-16 06:44] LABS: POTASSIUM - SERUM 2.9 mmol/L (3.5-5.1)
[2017-09-16 08:04] VITALS: BP 109/71
[2017-09-16 11:34] VITALS: BP 103/62
[2017-09-16 15:37] VITALS: BP 91/45
[2017-09-16 21:36] VITALS: BP 93/60
[2017-09-17 01:29] VITALS: BP 93/54
[2017-09-17 06:15] VITALS: BP 96/62
[2017-09-17 07:24] LABS: BASOPHILS 0.1 % (0-2); EOSINOPHILS 0.9 % (0-7); HEMATOCRIT 35.6 % (36.0-48.0); HEMOGLOBIN 12.2 g/dL (12-16); IMMATURE GRANULOCYTES 4.4 % (0-5); LYMPHOCYTES 22.6 % (15-50); MCH 31.5 pg (26.0-34.0); MCHC 34.3 g/dL (31.0-37.0); MEAN PLATELET VOLUME 10.4 fL (7.4-10.4); MONOCYTES 5.7 % (2-11); NEUTROPHILS 66.3 % (40-80); PLATELET COUNT 105 10x3/uL (130-400); RBC 3.87 10x6/uL (4.00-5.40); RDW 16.4 % (11.5-14.5); WBC 9.2 10x3/uL (4.8-10.8)
[2017-09-17 07:30] LABS: CALC OSMOLALITY 286 mosm/kg (275-300); CALCIUM 9.1 mg/dL (8.5-10.1); CARBON DIOXIDE 25.2 mmol/L (21.0-32.0); CHLORIDE - SERUM 104 mmol/L (98-107); CREATININE - SERUM 0.6 mg/dL (0.6-1.3); GLUCOSE 85 mg/dL (74-106); POTASSIUM - SERUM 3.9 mmol/L (3.5-5.1); SODIUM 139 mmol/L (136-145); UREA NITROGEN 41 mg/dL (7-18); eGFR NON AFRICAN AMERICAN > 90 mL/min (90-120)
[2017-09-17 07:58] VITALS: BP 108/67
[2017-09-17 11:24] VITALS: BP 96/56
[2017-09-17 15:35] VITALS: BP 96/46
[2017-09-17 17:07] LABS: HEPARIN INDUCED PLATELET AB 0.214 OD (0.000-0.400)
[2017-09-17 20:00] VITALS: BP 108/71
[2017-09-18] VITALS: BP 94/58
[2017-09-18 04:00] VITALS: BP 107/62
[2017-09-18 06:24] LABS: BASOPHILS 0.4 % (0-2); EOSINOPHILS 1.2 % (0-7); IMMATURE GRANULOCYTES 5.4 % (0-5); MCH 31.7 pg (26.0-34.0); MCHC 34.3 g/dL (31.0-37.0); MCV 92.3 fL (80.0-100.0); MEAN PLATELET VOLUME 11.3 fL (7.4-10.4); MONOCYTES 5.6 % (2-11); NEUTROPHILS 61.4 % (40-80); PLATELET COUNT 115 10x3/uL (130-400); RBC 3.79 10x6/uL (4.00-5.40); RDW 16.4 % (11.5-14.5); WBC 8.6 10x3/uL (4.8-10.8)
[2017-09-18 06:37] LABS: CALC OSMOLALITY 280 mosm/kg (275-300); CALCIUM 8.8 mg/dL (8.5-10.1); CARBON DIOXIDE 24.6 mmol/L (21.0-32.0); CHLORIDE - SERUM 103 mmol/L (98-107); CREATININE - SERUM 0.5 mg/dL (0.6-1.3); GLUCOSE 81 mg/dL (74-106); POTASSIUM - SERUM 3.5 mmol/L (3.5-5.1); SODIUM 136 mmol/L (136-145); UREA NITROGEN 41 mg/dL (7-18); eGFR NON AFRICAN AMERICAN > 90 mL/min (90-120)
[2017-09-18 08:10] VITALS: BP 107/68
[2017-09-18 11:23] VITALS: BP 108/64
[2017-09-18 15:31] VITALS: BP 110/62
[2017-09-18 20:00] VITALS: BP 95/55
[2017-09-19 04:00] VITALS: BP 101/59
[2017-09-19 07:42] VITALS: BP 132/68
[2017-09-19 12:42] VITALS: BP 105/56
[2017-09-19 16:37] VITALS: BP 93/55
[2017-09-19 18:09] LABS: FACTOR II DNA ANALYSIS Negative (())
[2017-09-19 20:00] VITALS: BP 94/59
[2017-09-19 20:52] LABS: HEMATOCRIT 37.5 % (36.0-48.0)
[2017-09-20 04:00] VITALS: BP 99/66
[2017-09-20 08:36] VITALS: BP 95/53
[2017-09-20 12:15] VITALS: BP 101/60
[2017-09-20] MEDS ORDERED: ELIQUIS5 MG PO (14:50)
[2017-09-20] MEDS ORDERED: ATROVENT 0.02%2.5 ML UPD (14:50)
[2017-09-20] MEDS ORDERED: XOPENEX 0.0.63 MG/3 UPD (14:51)
[2017-09-20] MEDS ORDERED: TESSALON PERLE100 MG PO (14:52)
[2017-09-20] MEDS ORDERED: MUCINEX DM ER1 EAC1 PO (14:52)
[2017-09-20] MEDS ORDERED: PROTONIX40 MG PO (14:52)
[2017-09-20] MEDS ORDERED: OMNICEF300 MG PO (14:54)
[2017-09-20 15:06] VITALS: BP 101/31
== END 2017-09-20 16:59 | DRG 175 ==
LOC: D.ER 13:55 → D.M2 21:04
PROVIDERS: Emergency Medicine; Internal Medicine Cardiovascular Disease; Internal Medicine Hematology & Oncology; Internal Medicine Nephrology; Internal Medicine Pulmonary Disease
DX: I26.99 Other pulmonary embolism without acute cor pulmonale (principal); J18.9 Pneumonia, unspecified organism; J44.0 Chronic obstructive pulmonary disease with (acute) lower respiratory infection; N39.0 Urinary tract infection, site not specified; I82.4Z2 Acute embolism and thrombosis of unspecified deep veins of left distal lower extremity; E78.5 Hyperlipidemia, unspecified; I10 Essential (primary) hypertension; I25.10 Atherosclerotic heart disease of native coronary artery without angina pectoris; I48.91 Unspecified atrial fibrillation; E87.6 Hypokalemia; D69.6 Thrombocytopenia, unspecified; Z85.841 Personal history of malignant neoplasm of brain; R42 Dizziness and giddiness; Z85.118 Personal history of other malignant neoplasm of bronchus and lung

== ENCOUNTER 2017-09-20 16:53 | Inpatient (IN) | payer MEDICARE, OTHER ==
[~2017-09-20] VITALS: Ht 157.5 cm; Wt 58.1 kg
--- NOTE | ~2017-09-20 | RHP ---
PATIENT: SOTO AVILA MEDICAL RECORD: [id number] ACCOUNT: [id number] LOCATION:[id number] : 44 ADMISSION DATE: 09/20/17 REHABILITATION HISTORY AND PHYSICAL EXAMINATION POST ADMISSION PHYSICIAN EXAMINATION Post-Admission Physical Examination and History and Physical DATE OF ADMISSION: 09/20/2017. ADMITTING DIAGNOSIS: Bilateral pulmonary emboli. 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 She had a craniotomy for left cerebellar lesion consistent with metastatic adenocarcinoma, has been on Decadron since then secondary to lower extremity edema and weight gain. She presents with a 2-week history of progressive shortness of breath and also some dyspnea with minimal activity and unable to even walk across the floor since surgery. Dr. Byrd did a CTA which showed bilateral pulmonary emboli. She had patchy/hazy appearance to her upper left lobe which may be related to pulmonary infarct versus pneumonia, bilateral lower lobe extremities. Dopplers were positive for DVT. She was admitted with pulmonary and hem-onc consult. She was started on antibiotics to cover for community-acquired pneumonia for 7 days, neb treatments of Xopenex and ipratropium bromide, titrated her O2 to get greater than 90%, antitussive and mucokinetic agents were also started. Follow up chest x-ray and laboratory. She has prolonged immobility, progressive generalized weakness, especially in her lower extremities affecting her tolerance for PT. She has been very fatigued with limited flexion, extension of her lower extremities, proximal muscle strength is also decreased. She is moderate to max assist for ADLs, moderate to max assist for sit to stand and bed to chair. Previously, she was markedly independent with a cane or walker for ADLs and mobility and would like to get back to this level and hopefully return home. COMORBIDITIES: Include bilateral DVTs, bilateral pulmonary emboli, adenocarcinoma of the left cerebellar resection, cerebral edema, left upper lobe infiltrate, leukocytosis, dyspnea, fatigue, weakness, headache, nausea, suspect COPD, BNP, elevated D-dimer, atrial fib, coronary artery disease, thrombocytopenia, hypokalemia, debility, recent falls. PAST MEDICAL HISTORY: Significant for dizziness, cataracts, had a history of hypertension, atrial fib, peripheral vascular disease, cancer in the brain and also in the lung. PAST SURGICAL HISTORY: Includes a right lobectomy. She has also had cerebellar surgery. ALLERGIES: CODEINE AND ACETAMINOPHEN. CURRENT MEDICATIONS: Include furosemide 20 mg q.48 hours. She is on Xopenex updrafts, Protonix 40 mg daily, Floranex 460 mg daily, aspirin chewable 81 mg daily, sotalol 40 mg b.i.d., Pravachol 40 mg at bedtime, meclizine 25 mg t.i.d. p.r.n., Omnicef 300 mg b.i.d., Tessalon Perles 100 mg t.i.d. p.r.n., Eliquis 5 HISTORY AND PHYSICAL [id number] SOTO AVILA L mg b.i.d. HABITS: No alcohol or tobacco use. FAMILY HISTORY: Noncontributory. SOCIAL HISTORY: The patient hopes to return back home and get back to her prior level of functioning. REVIEW OF SYSTEMS: GENERAL: Does complain of weakness. HEENT: Denies cold, cough, or congestion. CARDIOVASCULAR: Does not complain of any chest pain. LUNGS: Does complain of some shortness of breath. PHYSICAL EXAMINATION: VITAL SIGNS: Stable, afebrile. GENERAL: Elderly female in no acute distress, alert upon exam. HEENT: Normocephalic and atraumatic. Mucosa moist. NECK: Supple. No lymphadenopathy. LUNGS: Clear at this time. HEART: Regular rate and rhythm. ABDOMEN: Benign. EXTREMITIES: No clubbing, cyanosis, or edema. NEUROLOGIC: Slow to mentate, but intact. ASSESSMENT: This is a 76-year-old female patient admitted to rehab with a working diagnosis of debility secondary to bilateral pulmonary emboli and deep venous thrombosis. The patient has potential to make improvement. We instituted the following multidisciplinary therapies including to, but not limited to physical, occupational, respiratory, speech, nutritional services, prosthetics, and orthotics. Given her complex condition and risk for more complications, rehabilitation services cannot be provided at a low level of care such as a detention facility. PLAN: 1. Admit to [facility] rehab for intensive inpatient therapy to include the following disciplines: A. Physical therapy to improve gait, all transfer skills and bed mobility to a modified independent level. B. Occupational therapy to improve activities of daily living to a modified independent level. C. Case management to assist with discharge planning and placement options. D. Nutrition to assist with nutritional needs. E. Rehabilitation nursing to assist in monitoring the patient's underlying medical conditions and to assist with any type of bowel or bladder management. 2. The patient's current medications and medical care will be continued. 3. The patient will be placed on standard fall precautions. 4. The patient's estimated length of stay is approximately 7-10 days. 5. We will discuss this patient during care team staff meeting this week. TRANSINT:[id number] Voice Confirmation ID: [id number] DOCUMENT ID: [id number] NICOLAS notes whether there has been none or any medical/functional HISTORY AND PHYSICAL [id number] SOTO AVILA change since admission: - No change since pre-admission screen. NICOLAS attests patient continues to be appropriate for IRF: - Continues to be appropriate for IRF. SOPHIA ALLEN MD at 1317 CC: [id number] DICTATION DATE: 09/21/17 1026 TRUCK DRIVER SUPERVISOR: 09/21/17 1139 ADM IN [facility] [address] [id number]
[~2017-09-20 16:53] MED LIST changes: +ATROVENT 0.02%2.5 ML UPD; +ELIQUIS5 MG PO; +FUROSEMIDE20 MG PO; +MUCINEX DM ER1 EAC1 PO; +PROTONIX40 MG PO; +TESSALON PERLE100 MG PO; +XOPENEX 0.0.63 MG/3 UPD
[2017-09-20 20:50] VITALS: BP 113/83; BMI 23.4
[2017-09-21 08:00] VITALS: BP 98/61
[2017-09-21 13:29] VITALS: BMI 23.4
[2017-09-22 06:00] LABS: BASOPHILS 0.3 % (0-2); EOSINOPHILS 1.6 % (0-7); HEMATOCRIT 33.2 % (36.0-48.0); HEMOGLOBIN 11.3 g/dL (12-16); IMMATURE GRANULOCYTES 3.1 % (0-5); LYMPHOCYTES 37.4 % (15-50); MCH 31.5 pg (26.0-34.0); MCV 92.5 fL (80.0-100.0); MEAN PLATELET VOLUME 9.8 fL (7.4-10.4); MONOCYTES 7.2 % (2-11); NEUTROPHILS 50.4 % (40-80); PLATELET COUNT 113 10x3/uL (130-400); RBC 3.59 10x6/uL (4.00-5.40); RDW 16.6 % (11.5-14.5); WBC 6.4 10x3/uL (4.8-10.8)
[2017-09-22 06:22] LABS: CALC OSMOLALITY 295 mosm/kg (275-300); CALCIUM 8.6 mg/dL (8.5-10.1); CARBON DIOXIDE 23.2 mmol/L (21.0-32.0); CHLORIDE - SERUM 106 mmol/L (98-107); CREATININE - SERUM 0.6 mg/dL (0.6-1.3); GLUCOSE 94 mg/dL (74-106); POTASSIUM - SERUM 4.1 mmol/L (3.5-5.1); SODIUM 144 mmol/L (136-145); UREA NITROGEN 37 mg/dL (7-18); eGFR NON AFRICAN AMERICAN > 90 mL/min (90-120)
[2017-09-22 08:00] VITALS: BP 95/57
[2017-09-22 19:36] VITALS: BP 105/67
[2017-09-23 08:00] VITALS: BP 109/65
[2017-09-23 19:30] VITALS: BP 113/70
[2017-09-24 09:00] VITALS: BP 98/57
[2017-09-24 22:59] VITALS: BP 115/63
[2017-09-25 07:42] VITALS: BP 122/78
[2017-09-25 20:48] VITALS: BP 100/58
[2017-09-26 13:06] VITALS: BP 100/59
[2017-09-27 02:13] VITALS: BP 125/63
[2017-09-27 06:42] LABS: HEMATOCRIT 29.9 % (36.0-48.0); HEMOGLOBIN 9.7 g/dL (12-16); MCH 31.1 pg (26.0-34.0); MCHC 32.4 g/dL (31.0-37.0); MCV 95.8 fL (80.0-100.0); MEAN PLATELET VOLUME 9.8 fL (7.4-10.4); PLATELET COUNT 126 10x3/uL (130-400); RBC 3.12 10x6/uL (4.00-5.40); RDW 17.4 % (11.5-14.5); WBC 4.5 10x3/uL (4.8-10.8)
[2017-09-27 07:17] LABS: CALC OSMOLALITY 293 mosm/kg (275-300); CALCIUM 8.3 mg/dL (8.5-10.1); CHLORIDE - SERUM 110 mmol/L (98-107); CREATININE - SERUM 0.5 mg/dL (0.6-1.3); GLUCOSE 84 mg/dL (74-106); SODIUM 146 mmol/L (136-145); UREA NITROGEN 23 mg/dL (7-18); eGFR NON AFRICAN AMERICAN > 90 mL/min (90-120)
[2017-09-27 07:19] LABS: POTASSIUM - SERUM 2.8 mmol/L (3.5-5.1)
[2017-09-27 07:43] VITALS: BP 113/65
[2017-09-27 08:23] LABS: ANISOCYTOSIS OCC; EOSINOPHILS 1 % (0-7); LYMPHOCYTES 47 % (15-50); MONOCYTES 17 % (2-11); NEUTROPHILS 35 % (40-80); PLATELET ESTIMATE NORMAL; POIKILOCYTOSIS OCC; ROULEAUX OCC
[2017-09-27 10:59] VITALS: Ht 157.5 cm; Wt 58.1 kg
[2017-09-27 20:00] VITALS: BP 106/57
[2017-09-28 05:37] LABS: HEMATOCRIT 29.7 % (36.0-48.0); HEMOGLOBIN 9.6 g/dL (12-16); MCH 31.1 pg (26.0-34.0); MCHC 32.3 g/dL (31.0-37.0); MCV 96.1 fL (80.0-100.0); MEAN PLATELET VOLUME 9.1 fL (7.4-10.4); PLATELET COUNT 121 10x3/uL (130-400); RBC 3.09 10x6/uL (4.00-5.40); RDW 17.3 % (11.5-14.5); WBC 4.6 10x3/uL (4.8-10.8)
[2017-09-28 06:03] LABS: CALC OSMOLALITY 290 mosm/kg (275-300); CARBON DIOXIDE 25.8 mmol/L (21.0-32.0); CHLORIDE - SERUM 111 mmol/L (98-107); CREATININE - SERUM 0.5 mg/dL (0.6-1.3); GLUCOSE 85 mg/dL (74-106); SODIUM 145 mmol/L (136-145); UREA NITROGEN 22 mg/dL (7-18); eGFR NON AFRICAN AMERICAN > 90 mL/min (90-120)
[2017-09-28 06:04] LABS: POTASSIUM - SERUM 3.6 mmol/L (3.5-5.1)
[2017-09-28 06:32] LABS: LYMPHOCYTES 45 % (15-50); MONOCYTES 8 % (2-11); NEUTROPHILS 45 % (40-80); PLATELET ESTIMATE NORMAL
[2017-09-28 06:33] LABS: ANISOCYTOSIS OCC
[2017-09-28 08:21] VITALS: BP 106/54
== END 2017-09-28 12:30 | disposition home health service (06) | DRG 91 ==
LOC: D.REHAB 16:53
PROVIDERS: Emergency Medicine
DX: G72.89 Other specified myopathies (principal); I26.99 Other pulmonary embolism without acute cor pulmonale; G93.6 Cerebral edema; I82.403 Acute embolism and thrombosis of unspecified deep veins of lower extremity, bilateral; C71.6 Malignant neoplasm of cerebellum; R53.81 Other malaise; I10 Essential (primary) hypertension; D72.829 Elevated white blood cell count, unspecified; R06.00 Dyspnea, unspecified; R53.83 Other fatigue; R53.1 Weakness; I48.91 Unspecified atrial fibrillation; I25.10 Atherosclerotic heart disease of native coronary artery without angina pectoris; D69.6 Thrombocytopenia, unspecified; E87.6 Hypokalemia; Z91.81 History of falling

== ENCOUNTER 2017-10-18 12:52 | Emergency (ER) | payer MEDICARE, OTHER ==
[2017-09-27 10:59] VITALS: BMI 23.4
[2017-10-18 14:04] LABS: BASOPHILS 0.3 % (0-2); EOSINOPHILS 1.9 % (0-7); HEMATOCRIT 34.7 % (36.0-48.0); HEMOGLOBIN 10.7 g/dL (12-16); IMMATURE GRANULOCYTES 0.3 % (0-5); LYMPHOCYTES 45.6 % (15-50); MCH 29.9 pg (26.0-34.0); MCHC 30.8 g/dL (31.0-37.0); MCV 96.9 fL (80.0-100.0); MEAN PLATELET VOLUME 9.4 fL (7.4-10.4); NEUTROPHILS 41.9 % (40-80); RBC 3.58 10x6/uL (4.00-5.40); WBC 6.7 10x3/uL (4.8-10.8)
[2017-10-18 14:06] LABS: PLATELET COUNT 251 10x3/uL (130-400)
[2017-10-18 14:18] LABS: ALBUMIN 2.9 g/dL (3.4-5.0); ALKALINE PHOSPHATASE 80 U/L (46-116); ALT (SGPT) 19 U/L (10-68); CALC OSMOLALITY 284 mosm/kg (275-300); CALCIUM 8.5 mg/dL (8.5-10.1); CARBON DIOXIDE 28.6 mmol/L (21.0-32.0); CHLORIDE - SERUM 107 mmol/L (98-107); CREATININE - SERUM 0.7 mg/dL (0.6-1.3); GLUCOSE 92 mg/dL (74-106); POTASSIUM - SERUM 3.6 mmol/L (3.5-5.1); PROTEIN - SERUM 5.9 g/dL (6.4-8.2); SODIUM 143 mmol/L (136-145); UREA NITROGEN 13 mg/dL (7-18); eGFR NON AFRICAN AMERICAN 87 mL/min (90-120)
[2017-10-18 21:30] LABS: APPEARANCE CLEAR (CLEAR); BILIRUBIN NEGATIVE (NEGATIVE); COLOR YELLOW (YELLOW); GLUCOSE NEGATIVE (NEGATIVE); KETONE NEGATIVE (NEGATIVE); NITRITE NEGATIVE (NEGATIVE); PROTEIN NEGATIVE (NEGATIVE); UROBILINOGEN NORMAL (NORMAL)
[2017-10-18 21:32] LABS: RED CELLS - URINE 0-5 /hpf (0-5)
[2017-10-18 21:33] LABS: BACTERIA FEW /hpf (NONE SEEN)
== END 2017-10-18 21:27 | disposition home or self-care (01) ==
LOC: D.ER 12:52
PROVIDERS: Emergency Medicine
DX: R41.82 Altered mental status, unspecified (principal); D64.9 Anemia, unspecified; T42.4X5A Adverse effect of benzodiazepines, initial encounter; Y92.019 Unspecified place in single-family (private) house as the place of occurrence of the external cause; C71.9 Malignant neoplasm of brain, unspecified; I10 Essential (primary) hypertension; I50.9 Heart failure, unspecified

== ENCOUNTER 2017-10-24 14:28 | Inpatient (IN) | payer MEDICARE, OTHER ==
[~2017-10-24] VITALS: Ht 157.5 cm; Wt 59.4 kg
[2017-10-24 15:17] LABS: APPEARANCE CLEAR (CLEAR); BILIRUBIN NEGATIVE (NEGATIVE); COLOR YELLOW (YELLOW); GLUCOSE NEGATIVE (NEGATIVE); KETONE NEGATIVE (NEGATIVE); NITRITE NEGATIVE (NEGATIVE); PROTEIN NEGATIVE (NEGATIVE); UROBILINOGEN NORMAL (NORMAL)
[2017-10-24 15:54] LABS: BASOPHILS 0.2 % (0-2); EOSINOPHILS 2.6 % (0-7); HEMATOCRIT 35.2 % (36.0-48.0); HEMOGLOBIN 10.9 g/dL (12-16); IMMATURE GRANULOCYTES 0.3 % (0-5); LYMPHOCYTES 46.3 % (15-50); MCH 29.6 pg (26.0-34.0); MCV 95.7 fL (80.0-100.0); MEAN PLATELET VOLUME 9.7 fL (7.4-10.4); MONOCYTES 8.9 % (2-11); NEUTROPHILS 41.7 % (40-80); PLATELET COUNT 216 10x3/uL (130-400); RBC 3.68 10x6/uL (4.00-5.40); RDW 13.5 % (11.5-14.5); WBC 6.2 10x3/uL (4.8-10.8)
[2017-10-24 16:19] LABS: ALBUMIN 2.7 g/dL (3.4-5.0); ALKALINE PHOSPHATASE 66 U/L (46-116); ALT (SGPT) 18 U/L (10-68); BILIRUBIN - TOTAL 0.69 mg/dL (0.2-1.3); CALC OSMOLALITY 285 mosm/kg (275-300); CALCIUM 8.7 mg/dL (8.5-10.1); CARBON DIOXIDE 29.1 mmol/L (21.0-32.0); CHLORIDE - SERUM 107 mmol/L (98-107); CREATININE - SERUM 0.6 mg/dL (0.6-1.3); GLUCOSE 95 mg/dL (74-106); MAGNESIUM - SERUM 2.2 mg/dL (1.8-2.4); POTASSIUM - SERUM 3.5 mmol/L (3.5-5.1); PROTEIN - SERUM 5.5 g/dL (6.4-8.2); SODIUM 143 mmol/L (136-145); UREA NITROGEN 16 mg/dL (7-18); eGFR NON AFRICAN AMERICAN > 90 mL/min (90-120)
[2017-10-25] VITALS: BP 170/91
[2017-10-25 02:20] VITALS: BMI 24.0
[2017-10-25 04:00] VITALS: BP 144/78
[2017-10-25 08:00] VITALS: BP 149/79
[2017-10-25 09:25] VITALS: BMI 23.9
[2017-10-25 09:36] VITALS: Ht 157.5 cm; Wt 59.4 kg
[2017-10-25] MEDS ORDERED: LIPITOR20 MG PO (09:57)
[2017-10-25] MEDS ORDERED: K-TAB10 MEQ PO (10:00)
[2017-10-25 13:32] VITALS: BP 140/70
[2017-10-25 16:00] VITALS: BP 163/91
[2017-10-25 20:12] VITALS: BP 133/75
[2017-10-26 00:42] VITALS: BP 148/62
[2017-10-26 04:05] VITALS: BP 109/54
[2017-10-26 06:35] LABS: BASOPHILS 0.1 % (0-2); EOSINOPHILS 0 % (0-7); HEMATOCRIT 37.6 % (36.0-48.0); IMMATURE GRANULOCYTES 0.5 % (0-5); LYMPHOCYTES 21.4 % (15-50); MCH 29.8 pg (26.0-34.0); MCHC 31.9 g/dL (31.0-37.0); MEAN PLATELET VOLUME 10.2 fL (7.4-10.4); MONOCYTES 3.2 % (2-11); NEUTROPHILS 74.8 % (40-80); RBC 4.03 10x6/uL (4.00-5.40); RDW 13.6 % (11.5-14.5)
[2017-10-26 06:37] LABS: MCV 93.3 fL (80.0-100.0); PLATELET COUNT 318 10x3/uL (130-400); WBC 10.2 10x3/uL (4.8-10.8)
[2017-10-26 06:45] LABS: CALC OSMOLALITY 281 mosm/kg (275-300); CALCIUM 9.1 mg/dL (8.5-10.1); CARBON DIOXIDE 28.3 mmol/L (21.0-32.0); CHLORIDE - SERUM 102 mmol/L (98-107); CREATININE - SERUM 0.5 mg/dL (0.6-1.3); GLUCOSE 130 mg/dL (74-106); POTASSIUM - SERUM 3.6 mmol/L (3.5-5.1); SODIUM 139 mmol/L (136-145); UREA NITROGEN 19 mg/dL (7-18); eGFR NON AFRICAN AMERICAN > 90 mL/min (90-120)
[2017-10-26 10:43] VITALS: BP 142/54
[2017-10-26 12:33] VITALS: BP 129/50
[2017-10-26 20:00] VITALS: BP 143/65
[2017-10-27] VITALS: BP 105/45
[2017-10-27 04:51] VITALS: BP 134/55
[2017-10-27 05:39] LABS: BASOPHILS 0 % (0-2); EOSINOPHILS 0 % (0-7); HEMATOCRIT 35.3 % (36.0-48.0); HEMOGLOBIN 11.1 g/dL (12-16); IMMATURE GRANULOCYTES 0.5 % (0-5); LYMPHOCYTES 15.4 % (15-50); MCH 29.5 pg (26.0-34.0); MCHC 31.4 g/dL (31.0-37.0); MCV 93.9 fL (80.0-100.0); MEAN PLATELET VOLUME 10.2 fL (7.4-10.4); MONOCYTES 5.6 % (2-11); NEUTROPHILS 78.5 % (40-80); PLATELET COUNT 268 10x3/uL (130-400); RBC 3.76 10x6/uL (4.00-5.40); RDW 13.7 % (11.5-14.5); WBC 9.3 10x3/uL (4.8-10.8)
[2017-10-27 06:01] LABS: ANION GAP 13.1 mmol/L (8-16); CALCIUM 8.7 mg/dL (8.5-10.1); CARBON DIOXIDE 27.9 mmol/L (21.0-32.0); CREATININE - SERUM 0.8 mg/dL (0.6-1.3)
[2017-10-27 09:44] VITALS: BP 144/64
[2017-10-27 17:33] VITALS: BP 127/58
[2017-10-27 20:07] VITALS: BP 124/49
[2017-10-27 23:01] VITALS: BP 130/61
[2017-10-28 05:06] VITALS: BP 135/67
[2017-10-28 08:16] LABS: BASOPHILS 0 % (0-2); EOSINOPHILS 0 % (0-7); HEMATOCRIT 39.6 % (36.0-48.0); HEMOGLOBIN 12.3 g/dL (12-16); IMMATURE GRANULOCYTES 0.4 % (0-5); LYMPHOCYTES 9.8 % (15-50); MCH 29.6 pg (26.0-34.0); MCHC 31.1 g/dL (31.0-37.0); MCV 95.2 fL (80.0-100.0); MEAN PLATELET VOLUME 10.4 fL (7.4-10.4); MONOCYTES 4.1 % (2-11); NEUTROPHILS 85.7 % (40-80); PLATELET COUNT 321 10x3/uL (130-400); RBC 4.16 10x6/uL (4.00-5.40); RDW 13.7 % (11.5-14.5)
[2017-10-28 08:31] LABS: ANION GAP 12.3 mmol/L (8-16); CALCIUM 8.9 mg/dL (8.5-10.1); CARBON DIOXIDE 26.6 mmol/L (21.0-32.0); CREATININE - SERUM 0.9 mg/dL (0.6-1.3); POTASSIUM - SERUM 3.9 mmol/L (3.5-5.1)
[2017-10-28 08:45] VITALS: BP 126/53
[2017-10-28 13:17] VITALS: BP 132/60
[2017-10-28 15:52] VITALS: BP 114/50
[2017-10-28 20:31] VITALS: BP 150/67
[2017-10-29 01:49] VITALS: BP 132/58
[2017-10-29 04:57] VITALS: BP 153/67
[2017-10-29 05:20] LABS: BASOPHILS 0.1 % (0-2); EOSINOPHILS 0 % (0-7); HEMATOCRIT 34.2 % (36.0-48.0); IMMATURE GRANULOCYTES 0.7 % (0-5); LYMPHOCYTES 13.6 % (15-50); MCH 29.8 pg (26.0-34.0); MCHC 32.2 g/dL (31.0-37.0); MEAN PLATELET VOLUME 10.5 fL (7.4-10.4); MONOCYTES 4.6 % (2-11); RBC 3.69 10x6/uL (4.00-5.40); RDW 13.3 % (11.5-14.5); WBC 9.2 10x3/uL (4.8-10.8)
[2017-10-29 05:23] LABS: MCV 92.7 fL (80.0-100.0); PLATELET COUNT 227 10x3/uL (130-400)
[2017-10-29 05:33] LABS: ANION GAP 9.2 mmol/L (8-16); CALCIUM 8.4 mg/dL (8.5-10.1); CARBON DIOXIDE 27.4 mmol/L (21.0-32.0); CREATININE - SERUM 0.9 mg/dL (0.6-1.3); POTASSIUM - SERUM 3.6 mmol/L (3.5-5.1)
[2017-10-29 08:31] VITALS: BP 145/64
[2017-10-29 11:44] VITALS: BP 148/69
[2017-10-29 15:50] VITALS: BP 142/67
[2017-10-29 22:53] VITALS: BP 141/57
[2017-10-30 01:42] VITALS: BP 152/64
[2017-10-30 05:52] LABS: BASOPHILS 0 % (0-2); EOSINOPHILS 0 % (0-7); HEMATOCRIT 34.9 % (36.0-48.0); HEMOGLOBIN 11.3 g/dL (12-16); LYMPHOCYTES 13.6 % (15-50); MCH 29.7 pg (26.0-34.0); MCHC 32.4 g/dL (31.0-37.0); MCV 91.6 fL (80.0-100.0); MEAN PLATELET VOLUME 10.4 fL (7.4-10.4); MONOCYTES 4.9 % (2-11); NEUTROPHILS 80.5 % (40-80); PLATELET COUNT 221 10x3/uL (130-400); RBC 3.81 10x6/uL (4.00-5.40); WBC 8.3 10x3/uL (4.8-10.8)
[2017-10-30 05:55] VITALS: BP 152/86
[2017-10-30 06:05] LABS: CALC OSMOLALITY 277 mosm/kg (275-300); CALCIUM 8.7 mg/dL (8.5-10.1); CHLORIDE - SERUM 102 mmol/L (98-107); CREATININE - SERUM 0.7 mg/dL (0.6-1.3); GLUCOSE 126 mg/dL (74-106); POTASSIUM - SERUM 3.4 mmol/L (3.5-5.1); SODIUM 136 mmol/L (136-145); UREA NITROGEN 25 mg/dL (7-18); eGFR NON AFRICAN AMERICAN 87 mL/min (90-120)
[2017-10-30 09:26] VITALS: BP 158/65
[2017-10-30 12:43] VITALS: BP 139/70
[2017-10-30 17:33] VITALS: BP 144/71
[2017-10-30 21:52] VITALS: BP 126/64
[2017-10-31 05:33] VITALS: BP 123/67
[2017-10-31 08:30] VITALS: BP 144/56
[2017-10-31 12:08] VITALS: BP 120/63
[2017-10-31] MEDS ORDERED: BETAPACE 80 MG80 MG PO (13:17)
[2017-10-31] MEDS ORDERED: PRAVACHOL20 MG PO (13:17)
[2017-10-31] MEDS ORDERED: MEDROL DOSE PACK4 MG PO (13:19)
== END 2017-10-31 17:03 | disposition home health service (06) | DRG 54 ==
LOC: D.ER 14:28 → D.SDCHOLD 17:40 → D.M3 17:40 → D.MS 10-28 16:52
PROVIDERS: Emergency Medicine; Internal Medicine Nephrology
DX: C79.31 Secondary malignant neoplasm of brain (principal); G93.6 Cerebral edema; Z85.118 Personal history of other malignant neoplasm of bronchus and lung; Z86.711 Personal history of pulmonary embolism; Z79.01 Long term (current) use of anticoagulants; I48.91 Unspecified atrial fibrillation; E78.5 Hyperlipidemia, unspecified; I10 Essential (primary) hypertension; I25.10 Atherosclerotic heart disease of native coronary artery without angina pectoris; Z95.5 Presence of coronary angioplasty implant and graft; D64.9 Anemia, unspecified

== ENCOUNTER → 2018-01-09 11:04 | Outpatient (CLI) | payer MEDICARE, OTHER ==
[2017-10-25 09:36] VITALS: BMI 24.0
[~2018-01-09 11:04] MED LIST changes: +K-TAB10 MEQ PO; +LIPITOR20 MG PO; +MEDROL DOSE PACK4 MG PO; +PRAVACHOL20 MG PO
== END | disposition home or self-care (01) ==
LOC: D.MRI 11:04
DX: C71.9 Malignant neoplasm of brain, unspecified (principal)

== ENCOUNTER → 2018-01-12 16:01 | Outpatient (CLI) | payer MEDICARE, OTHER ==
[2017-10-25 09:36] VITALS: BMI 24.0
[2018-01-12 16:22] LABS: BASOPHILS 0.4 % (0-2); EOSINOPHILS 0.1 % (0-7); HEMATOCRIT 41.4 % (36.0-48.0); IMMATURE GRANULOCYTES 4.3 % (0-5); LYMPHOCYTES 12.2 % (15-50); MCHC 33.8 g/dL (31.0-37.0); MCV 85.9 fL (80.0-100.0); MEAN PLATELET VOLUME 9.4 fL (7.4-10.4); MONOCYTES 4.9 % (2-11); NEUTROPHILS 78.1 % (40-80); PLATELET COUNT 214 10x3/uL (130-400); RBC 4.82 10x6/uL (4.00-5.40); RDW 14.6 % (11.5-14.5); WBC 11.1 10x3/uL (4.8-10.8)
[2018-01-12 16:23] LABS: APPEARANCE CLEAR (CLEAR); BILIRUBIN NEGATIVE (NEGATIVE); COLOR YELLOW (YELLOW); GLUCOSE NEGATIVE (NEGATIVE); KETONE NEGATIVE (NEGATIVE); NITRITE NEGATIVE (NEGATIVE); PROTEIN NEGATIVE (NEGATIVE); UROBILINOGEN NORMAL (NORMAL)
[2018-01-12 16:31] LABS: UDS - AMPHET NEGATIVE QUAL (NEGATIVE); UDS - BARB NEGATIVE QUAL (NEGATIVE); UDS - BENZO NEGATIVE QUAL (NEGATIVE); UDS - COCAINE NEGATIVE QUAL (NEGATIVE); UDS - OPIATE NEGATIVE QUAL (NEGATIVE); UDS - PCP NEGATIVE QUAL (NEGATIVE); UDS - THC NEGATIVE QUAL (NEGATIVE)
[2018-01-12 16:35] LABS: ALBUMIN 2.2 g/dL (3.4-5.0); ALKALINE PHOSPHATASE 121 U/L (46-116); ALT (SGPT) 56 U/L (10-68); BILIRUBIN - TOTAL 0.91 mg/dL (0.2-1.3); CALC OSMOLALITY 280 mosm/kg (275-300); CALCIUM 9.5 mg/dL (8.5-10.1); CARBON DIOXIDE 28.2 mmol/L (21.0-32.0); CHLORIDE - SERUM 97 mmol/L (98-107); CREATININE - SERUM 0.7 mg/dL (0.6-1.3); GLUCOSE 109 mg/dL (74-106); POTASSIUM - SERUM 3.8 mmol/L (3.5-5.1); PROTEIN - SERUM 6.2 g/dL (6.4-8.2); SODIUM 136 mmol/L (136-145); UREA NITROGEN 36 mg/dL (7-18); eGFR NON AFRICAN AMERICAN 86 mL/min (90-120)
== END | disposition home or self-care (01) ==
LOC: D.LABREF 16:01
PROVIDERS: Family Medicine Adult Medicine
DX: D69.6 Thrombocytopenia, unspecified (principal)